=== PATIENT | female | born 1975 | race Caucasian/White ===

== ENCOUNTER → 2022-04-02 11:05 | Outpatient (CLI) | payer OTHER, SELFPAY ==
[2022-04-02 18:43] LABS: Basophils # 0.2 K/mm3 (0-0.2); Basophils % 1.4 % (0.1-2.0); Eosinophils # 0.3 K/mm3 (0.0-0.4); Eosinophils % 2.6 % (0.1-12.0); Hematocrit 50.7 % (37.0-47.0); Hemoglobin 16.3 g/dL (12.2-16.2); Lymphocytes % 26.8 % (10-50); Mean Corpuscular HGB Conc 32.1 g/dL (31.8-35.4); Mean Corpuscular Hemoglobin 31.6 pg (27.0-31.2); Mean Corpuscular Volume 98.5 fl (81-99); Mean Platelet Volume 9.2 fl (7.4-10.4); Monocytes # 0.7 K/mm3 (0.1-1.0); Monocytes % 5.9 % (1.7-9.3); Neutrophils % 63.3 % (37.0-80.0); Platelet Count 388 K/mm3 (142-424); Red Blood Count 5.14 M/mm3 (4.20-5.40); Red Cell Distribution Width 13.9 % (11.5-17.5)
[2022-04-02 18:58] LABS: Alanine Aminotransferase 18 U/L (12-78); Albumin Level 4.3 g/dl (3.5-5.0); Albumin/Globulin Ratio 1.8 (1.1-1.8); Alkaline Phosphatase 72 U/L (38-126); Anion Gap 13.3 mEq/L (5-15); Aspartate Amino Transferase 30 U/L (14-36); Bilirubin,Total 0.6 mg/dl (0.2-1.3); Blood Urea Nitrogen 18 mg/dl (7-17); Calcium 9.1 mg/dl (8.4-10.2); Carbon Dioxide 27 mmol/L (22.0-30.0); Chloride 102 mmol/L (98-107); Estimated Glomerular Filt Rate 89 ml/min (>60); GFR (African American) 108 ML/MIN (>60); Globulin 2.4 g/dL (1.3-3.2); Glucose 91 mg/dl (74-100); Potassium 4.3 mmoL/L (3.5-5.1); Sodium 138 mmol/L (136-145); Total Protein,Serum 6.7 g/dl (6.3-8.2)
[2022-04-02 19:26] LABS: Thyroid Stimulating Hormone 0.82 uIU/mL (0.465-4.68)
[2022-04-02 19:45] LABS: Vitamin B12 610 pg/mL (239-931)
== END ==
PROVIDERS: PCP Family Medicine; Visit Provider Family Medicine
DX: R10.13 Epigastric pain (principal); B37.0 Candidal stomatitis
CPT/HCPCS: 80053; 82607; 84443; 85025

== ENCOUNTER 2022-05-14 11:10 | Emergency (ER) | payer OTHER, SELFPAY ==
[2022-05-14 14:15] VITALS: BP 132/84; PULSE 75; RESP 20; TEMP 37; O2SAT 95; BMI 28.9
--- NOTE | 2022-05-14 14:15 | EXP.UTC ---
Discharge Plan Disposition Patient Disposition: Home, Self-Care Condition: Good Prescriptions Prescriptions: New azithromycin [Zithromax] 250 mg tablet 250 mg PO UD DOSE PK Qty: 6 0RF Rx Instructions: Take two (2) tablets today, then one (1) tablet days #2 thru #5 methylprednisolone 4 mg Tablets,Dose Pack 4 mg PO DIRECTED Qty: 21 0RF fluconazole [Diflucan] 100 mg tablet 100 mg PO DAILY 3 Days Qty: 3 0RF No Action fluconazole [Diflucan] 200 mg tablet 200 mg PO DAILY 14 Days Qty: 14 0RF nystatin 100,000 unit/mL suspension 5 ml PO QID 14 Days Qty: 280 0RF Rx Instructions: Swish, Gargle, and Swallow fenofibrate 160 mg tablet 160 mg PO DAILY fluticasone propionate 50 mcg/actuation spray,suspension 2 spray intranasal cyclobenzaprine 10 mg tablet 10 mg PO DAILY quetiapine 50 mg tablet 50 mg PO DAILY citalopram 20 mg tablet 20 mg PO DAILY Referrals Follow up/Referrals: Bakari Azevedo JR, MD [Physician] - See instructions Provider,MD David [Primary Care Provider] - See instructions Activity Restrictions/Add. Instructions Additional Instructions/Restrictions: Drink plenty of fluids. Take tylenol or ibuprofen for pain or fever. Take the medications as directed. Follow up with your regular doctor. GO TO THE ER FOR ANY WORSENING SYMPTOMS Rest the extremity, apply ice for 15 minutes as tolerated three or four times per day, Wear the ning wrap for compression, Elevate the extremity as tolerated while you are resting. Follow up with Dr. Azevedo (orthopedics for your shoulder pain. I put in a referral but you need to call his office and schedule an appointment. Clinical Impressions Clinical Impression: Bronchitis, Thrush, Tendinopathy of right shoulder Instructions Patient Instructions: Shoulder Tendinopathy, DI for Acute Bronchitis, DI for Shoulder Tendinopathy, Fluconazole, Thrush-Adult Discharge ED Provider: Seth Byrnes [facility] General Stated complaint: wc 05/09 1600 right shoulder pain, sore throat Time Seen by Provider: 05/14/22 14:15 History of Present Illness Provider Complaint: She c/o chest congestion for the past 3 days. She has had a whitish coating in her mouth for the past several weeks that she attributes to thrush. She also c/o right shoulder pain for the past 1 week. She originally hurt her shoulder when she was trying to unhook the trailer connected to her truck and she had to strain to get it loose. This occured right before she began having her current symptoms. Related Data Home Medications Medication Instructions Recorded Confirmed citalopram 20 mg tablet 20 mg PO DAILY 04/02/22 04/29/22 cyclobenzaprine 10 mg tablet 10 mg PO DAILY 04/02/22 04/29/22 fenofibrate 160 mg tablet 160 mg PO DAILY 04/02/22 04/29/22 fluticasone propionate 50 2 spray intranasal 04/02/22 04/29/22 mcg/actuation nasal spray,suspension quetiapine 50 mg tablet 50 mg PO DAILY 04/02/22 04/29/22 Previous Rx's Medication Instructions Recorded fluconazole 200 mg tablet 200 mg PO DAILY oral candidiasis 04/29/22 (Diflucan) 14 days #14 tabs nystatin 100,000 unit/mL oral 5 ml PO QID 14 days #280 mL 04/29/22 suspension azithromycin 250 mg tablet 250 mg PO UD DOSE PK #6 tabs 05/14/22 (Zithromax) fluconazole 100 mg tablet 100 mg PO DAILY 3 days #3 tabs 05/14/22 (Diflucan) methylprednisolone 4 mg tablets in 4 mg PO DIRECTED #21 tabs 05/14/22 a dose pack Allergies Allergy/AdvReac Type Severity Reaction Status Date / Time Penicillins Allergy Severe Swelling Verified 04/29/22 11:28 of Lip/Tongue/Throat venlafaxine [From Effexor] AdvReac Mild Agitated Verified 04/29/22 11:28 [facility] Medical History Anxiety Anxiety and depression Bipolar depression Dyspepsia HLD (hyperlipidemia) HTN (hypertension) Oral candidiasis Oropharyngeal candid
[2022-05-14 14:27] VITALS: BP 132/84; PULSE 75; RESP 20; TEMP 37; O2SAT 95
[2022-05-14 14:55] LABS: UTC Strep Screen (Rapid) Negative (Negative)
== END 2022-05-14 15:30 | disposition home or self-care (01) ==
PROVIDERS: Emergency Provider Nurse Practitioner Family
DX: J40 Bronchitis, not specified as acute or chronic (principal); B37.0 Candidal stomatitis; M67.911 Unspecified disorder of synovium and tendon, right shoulder
CPT/HCPCS: 87880; 99212; G0463

== ENCOUNTER → 2022-09-02 13:40 | Outpatient (CLI) | payer OTHER, SELFPAY ==
--- NOTE | 2022-09-02 13:43 | MR_ITS ---
FINAL REPORT CLINICAL HISTORY: shoulder pain. popping and clicking in shoulder. weakness in arm. COMPARISON: None FINDINGS: Multiplanar MR imaging of the right shoulder was performed without contrast. There is supraspinatus and infraspinatus tendinosis. There is partial-thickness articular surface tear of the supraspinatus tendon less than 50% thickness.. There is mild AC joint arthrosis. There is a small amount of fluid in the bursa. The glenoid labrum is intact. The long head of the biceps tendon is intact. A small glenohumeral joint effusion is seen. There is abnormal signal in the anterior and posterior humeral head. Posterior focus is consistent with subchondral cyst. Anterior focus may represent osteochondral lesion versus small nondisplaced fracture. The musculature is intact. There is no evidence of soft tissue mass. IMPRESSION: Partial-thickness articular surface tear of the supraspinatus tendon. Osteochondral lesion versus small nondisplaced fracture in the humeral head. Other degenerative changes as above. Reviewed, Interpreted and Dictated by Jalen Gutierres III, MD Transcribed by Romi Loo Authenticated and [facility]
--- NOTE | 2022-09-02 14:24 | XR_ITS ---
FINAL REPORT CLINICAL HISTORY: right great toe pain, old injury tore toe nail off a few years ago. stubbed toe FINDINGS: RIGHT TOES 3 views of the right great toe were obtained. There is no acute fracture or dislocation. There are mild degenerative changes of the 1st MTP joint. There is no acute soft tissue abnormality. IMPRESSION: Degenerative change with no acute bony abnormality. Reviewed, Interpreted and Dictated by Jalen Gutierres III, MD Transcribed by Tigist Flanagan Authenticated and [facility][1]
== END ==
PROVIDERS: PCP Nurse Practitioner; Visit Provider Orthopaedic Surgery
DX: S46.011A Strain of muscle(s) and tendon(s) of the rotator cuff of right shoulder, initial encounter (principal); M79.674 Pain in right toe(s)
CPT/HCPCS: 73221; 73660

== ENCOUNTER → 2022-10-25 08:27 | Outpatient (CLI) | payer OTHER, SELFPAY ==
[2022-10-25 18:47] LABS: Alanine Aminotransferase 18 U/L (12-78); Albumin Level 4.6 g/dl (3.5-5.0); Albumin/Globulin Ratio 2.2 (1.1-1.8); Alkaline Phosphatase 52 U/L (38-126); Anion Gap 16.2 mEq/L (5-15); Aspartate Amino Transferase 25 U/L (14-36); Bilirubin,Total 0.6 mg/dl (0.2-1.3); Blood Urea Nitrogen 21 mg/dl (7-17); Calcium 9.4 mg/dl (8.4-10.2); Carbon Dioxide 31 mmol/L (22.0-30.0); Chloride 96 mmol/L (98-107); Cholesterol 196 mg/dl (140-200); Estimated Glomerular Filt Rate 89 ml/min (>60); GFR (African American) 108 ML/MIN (>60); Globulin 2.1 g/dL (1.3-3.2); Glucose 96 mg/dl (74-100); HDL Cholesterol 65 mg/dl (40-60); Potassium 4.2 mmoL/L (3.5-5.1); Sodium 139 mmol/L (136-145); Total Protein,Serum 6.7 g/dl (6.3-8.2); Triglycerides 119 mg/dl (30-150); VLDL Cholesterol 24 mg/dL (0-40)
[2022-10-25 18:58] LABS: Direct LDL Cholesterol 105.46 mg/dL (100-129)
[2022-10-25 19:04] LABS: 25-OH Vitamin D, Total 94.2 ng/mL (30-100)
== END ==
PROVIDERS: PCP Nurse Practitioner; Visit Provider Nurse Practitioner
DX: E55.9 Vitamin D deficiency, unspecified (principal); E78.1 Pure hyperglyceridemia
CPT/HCPCS: 80053; 80061; 82306

== ENCOUNTER → 2022-11-01 16:48 | Outpatient (CLI) | payer OTHER, SELFPAY ==
--- NOTE | 2022-11-01 16:52 | MR_ITS ---
PROCEDURE INFORMATION: Exam: MR Cervical Spine Without Contrast Exam date and time: 11/01/2022 4:48 PM Age: 47 years old Clinical indication: Pain; Cervicalgia; Additional info: Cervical radiculopathy TECHNIQUE: Imaging protocol: Magnetic resonance imaging of the cervical spine without contrast. COMPARISON: DX XR CERVICAL SPINE AP AND LATERAL 10/18/2022 7:55 AM FINDINGS: Bones/joints: C5-C6 anterior interbody fusion changes are stable. The cervical spine is straightened which is unchanged. The vertebral body heights are maintained. There is diffuse disc space height loss with anterior osteophyte formation. The marrow signal is normal. No acute osseous injury. Spinal cord: Normal signal. No cord compression. C2-C3: C2-C3 left-sided subarticular zone focal disc protrusion measures 3 mm AP without significant stenosis of the spinal canal. There is mild uncovertebral and facet joint osteophyte mildly narrowing the left neural foramen. C3-C4: C3-C4 uncovertebral and facet osteophytes severely narrow the left neural foramen and mildly narrow the right neural foramen. The spinal canal is patent. C4-C5: C4-C5 minimal diffuse disc bulging causes mild stenosis of the spinal canal. Uncovertebral facet joint osteophyte severely narrow both neural foramen. C5-C6: C5-C6 status post discectomy and fusion. No spinal canal stenosis after surgery. Uncovertebral and facet joint osteophyte severely narrow both neural foramen. C6-C7: C6-C7 mild diffuse disc bulge and dorsal endplate osteophyte is seen with mild stenosis of the spinal canal. There is severe narrowing of both neural foramen due to osteophyte. C7-T1: C7-T1 minimal dorsal endplate osteophyte is seen without significant stenosis of the spinal canal. The neural foramina are severely narrowed on both sides due to osteophyte. Soft tissues: Unremarkable. Vasculature: Expected flow voids in the vertebral arteries. IMPRESSION: Status post C5-C6 anterior interbody fusion with stable alignment. There is adjacent segment degenerative disc disease present with mild spinal canal stenosis at C4-C5 above the fusion at C6-C7 below the fusion as described. Multilevel severe neural foraminal narrowing is also present.
== END ==
PROVIDERS: PCP Physician Assistant; Visit Provider Physician Assistant
DX: M54.12 Radiculopathy, cervical region (principal); G95.89 Other specified diseases of spinal cord
CPT/HCPCS: 72141; 76376

== ENCOUNTER → 2022-11-05 17:00 | Outpatient (CLI) | payer OTHER, SELFPAY ==
--- NOTE | 2022-11-05 17:02 | MM_ITS ---
PROCEDURE INFORMATION: Exam: MG Bilateral Screening 3D Mammography Exam date and time: 11/05/2022 4:56 PM Age: 47 years old Clinical indication: Screening examination TECHNIQUE: Imaging protocol: Bilateral Screening tomosynthesis and 2D mammography including computer-aided detection (CAD) when performed. COMPARISON: No relevant prior studies available. FINDINGS: MAMMOGRAPHY: Breast composition: The breasts are almost entirely fatty. Mass: None. Architectural distortion: None. Calcifications: No suspicious calcifications. Asymmetric density: None. Skin thickening: None. Axillary adenopathy: None. Implants: Prepectoral saline breast implants are present. IMPRESSION: No mammographic evidence of malignancy. Annual screening is recommended unless otherwise clinically indicated. ASSESSMENT: BI-RADS Category 1: Negative
== END ==
PROVIDERS: PCP Nurse Practitioner; Visit Provider Nurse Practitioner
DX: Z12.31 Encounter for screening mammogram for malignant neoplasm of breast (principal)
CPT/HCPCS: 77063; 77067

== ENCOUNTER → 2022-11-08 14:51 | Outpatient (CLI) | payer OTHER, SELFPAY ==
--- NOTE | 2022-11-08 14:53 | XR_ITS ---
FINAL REPORT CLINICAL HISTORY: left hip pain, no injury. FINDINGS: LEFT HIP 2 views of the left hip and AP view of the pelvis are obtained. There is no acute fracture or dislocation. Mild degenerative changes are seen. Visualized joint spaces are normally aligned. There is no acute soft tissue abnormality. IMPRESSION: No acute bony abnormality. Reviewed, Interpreted and Dictated by Jalen Gutierres III, MD Transcribed by Janae Mariee Authenticated and . [facility]
== END ==
PROVIDERS: PCP Nurse Practitioner; Visit Provider Nurse Practitioner
DX: M25.552 Pain in left hip (principal)
CPT/HCPCS: 73502

== ENCOUNTER → 2023-02-10 10:09 | Outpatient (CLI) | payer OTHER, SELFPAY ==
--- NOTE | 2023-02-10 10:12 | XR_ITS ---
FINAL REPORT CLINICAL HISTORY: injury, right shoulder pain COMPARISON: None FINDINGS: RIGHT SHOULDER Three views demonstrate no acute fracture or dislocation. The visualized joint spaces are normally aligned. The soft tissues are unremarkable. Note is made of metallic instrumentation in the lower cervical region compatible with a cervical fusion. IMPRESSION: No acute process. Reviewed, Interpreted and Dictated by John Mcqueen MD Transcribed by Lisandra Huang Authenticated and . [facility]
== END ==
PROVIDERS: PCP Nurse Practitioner; Visit Provider Orthopaedic Surgery
DX: M67.911 Unspecified disorder of synovium and tendon, right shoulder (principal)
CPT/HCPCS: 73030

== ENCOUNTER → 2023-03-10 13:44 | Outpatient (POV) | payer OTHER, SELFPAY | PROVIDERS: Visit Provider Specialist/Technologist | DX: Z00.00 Encounter for general adult medical examination without abnormal findings (principal) ==

== ENCOUNTER 2023-09-29 18:00 | Outpatient (CLI) | payer OTHER, SELFPAY ==
[2023-09-29 18:48] LABS: Basophils # 0.1 K/mm3 (0-0.2); Basophils % 1.4 % (0.1-2.0); Eosinophils # 0.2 K/mm3 (0.0-0.4); Hematocrit 49.9 % (37.0-47.0); Hemoglobin 16.1 g/dL (12.2-16.2); Lymphocytes # 2.3 K/mm3 (0.7-4.5); Lymphocytes % 29.5 % (10-50); Mean Corpuscular HGB Conc 32.2 g/dL (31.8-35.4); Mean Corpuscular Hemoglobin 31.9 pg (27.0-31.2); Mean Platelet Volume 9.6 fl (7.4-10.4); Monocytes # 0.4 K/mm3 (0.1-1.0); Monocytes % 5.3 % (1.7-9.3); Neutrophils # 4.7 K/mm3 (1.8-7.8); Neutrophils % 60.7 % (37.0-80.0); Platelet Count 290 K/mm3 (142-424); Red Blood Count 5.04 M/mm3 (4.20-5.40); Red Cell Distribution Width 13.4 % (11.5-17.5); White Blood Count 7.7 K/mm3 (4.8-10.8)
[2023-09-29 18:51] LABS: Alanine Aminotransferase 20 U/L (12-78); Albumin Level 4.5 g/dl (3.5-5.0); Albumin/Globulin Ratio 1.8 (1.1-1.8); Alkaline Phosphatase 60 U/L (38-126); Anion Gap 9.1 mEq/L (5-15); Aspartate Amino Transferase 27 U/L (14-36); Bilirubin,Total 0.8 mg/dl (0.2-1.3); Blood Urea Nitrogen 19 mg/dl (7-17); Calcium 9.7 mg/dl (8.4-10.2); Carbon Dioxide 26 mmol/L (22.0-30.0); Chloride 108 mmol/L (98-107); Estimated Glomerular Filt Rate 106 ml/min (>60); GFR (African American) 128 ML/MIN (>60); Globulin 2.5 g/dL (1.3-3.2); Glucose 109 mg/dl (74-100); HDL Cholesterol 41 mg/dl (40-60); Potassium 4.1 mmoL/L (3.5-5.1); Sodium 139 mmol/L (136-145); Triglycerides 235 mg/dl (30-150); VLDL Cholesterol 47 mg/dL (0-40)
[2023-09-29 18:59] LABS: Chol/HDL Ratio 8.2 (1-3.5); Cholesterol 338 mg/dl (140-200)
[2023-09-29 19:02] LABS: Direct LDL Cholesterol 185.79 mg/dL (100-129)
[2023-09-29 19:09] LABS: 25-OH Vitamin D, Total 47.1 ng/mL (30-100)
[2023-09-29 19:25] LABS: Thyroid Stimulating Hormone 0.78 uIU/mL (0.465-4.68)
[2023-09-29 19:44] LABS: Vitamin B12 545 pg/mL (239-931)
[2023-09-29 19:47] LABS: Creatinine,Urine Random 146 mg/dL (Not Estab.); Microalbumin < 6.000 mg/L (0-16.7)
[2023-09-29 20:11] LABS: Hemoglobin A1C 5.6 % (4.0-6.0)
== END 2023-09-29 23:59 | disposition home or self-care (01) ==
LOC: LAB.DROPOF 09-30 10:22
PROVIDERS: PCP Nurse Practitioner; Visit Provider Nurse Practitioner
DX: E78.1 Pure hyperglyceridemia (principal); E55.9 Vitamin D deficiency, unspecified; F31.9 Bipolar disorder, unspecified; Z13.1 Encounter for screening for diabetes mellitus; R03.0 Elevated blood-pressure reading, without diagnosis of hypertension
CPT/HCPCS: 80053; 80061; 82043; 82306; 82570; 82607; 83036; 84443; 85025

== ENCOUNTER 2023-12-26 10:27 | Outpatient (CLI) | payer OTHER, SELFPAY ==
[2023-12-26 18:51] LABS: Cholesterol 161 mg/dl (140-200); Triglycerides 149 mg/dl (30-150); VLDL Cholesterol 30 mg/dL (0-40)
[2023-12-26 18:52] LABS: Chol/HDL Ratio 3.4 (1-3.5); HDL Cholesterol 48 mg/dl (40-60)
[2023-12-26 19:02] LABS: Direct LDL Cholesterol 72.94 mg/dL (100-129)
== END 2023-12-26 23:59 | disposition home or self-care (01) ==
LOC: LAB.DROPOF 12-27 10:28
PROVIDERS: PCP Nurse Practitioner; Visit Provider Nurse Practitioner
DX: E78.5 Hyperlipidemia, unspecified (principal)
CPT/HCPCS: 80061

== ENCOUNTER 2024-05-28 09:40 | Outpatient (CLI) | payer OTHER, SELFPAY ==
--- NOTE | 2024-05-28 09:52 | XR_ITS ---
FINAL REPORT CLINICAL HISTORY: left knee pain COMPARISON: None FINDINGS: Three views of the left knee reveal no evidence of fracture or dislocation. The bony alignment is normal. There is mild degenerative change. A small joint effusion is noted. No localized soft tissue abnormality is seen. IMPRESSION: Mild degenerative change and small joint effusion. No acute bony abnormality. Reviewed, Interpreted and Dictated by Jalen Gutierres III, MD Transcribed by Romi Loo Authenticated and [facility]
== END 2024-05-28 23:59 | disposition home or self-care (01) ==
LOC: RAD 09:42
PROVIDERS: PCP Nurse Practitioner Family; Visit Provider Orthopaedic Surgery
DX: M25.562 Pain in left knee (principal)
CPT/HCPCS: 73562

== ENCOUNTER 2024-06-12 10:36 | Outpatient (CLI) | payer OTHER, SELFPAY ==
[2024-06-12 10:40] VITALS: PULSE 62; PULSE 68
[2024-06-12] MEDS: ALBUTEROL 0.083% 2.5 MG/3 ML NEB IH (10:40)
--- NOTE | 2024-06-12 10:40 | CT_ITS ---
FINAL REPORT TECHNIQUE: Axial images were obtained from the lung apex to the mid abdomen by computed tomography. This study was performed with techniques to keep radiation doses as low as reasonably achievable (ALARA). Individualized dose reduction techniques using automated exposure control or adjustment of mA and/or kV according to the patient's size were employed. CLINICAL HISTORY: lung cancer screening CURRENT SMOKER 2PPD X33 YEARS FINDINGS: CHEST CT LOW DOSE CTDI vol (mGy): 2.90 DLP (mGy-cm): 90.12 There is no axillary adenopathy. There is no hilar or mediastinal adenopathy. The heart is normal in size. There is no pericardial or pleural effusion. There is a 4 mm nodule in the left lower lobe well-seen on image 53 of series 3. There is a 3 mm nodule in the right lower lobe well-seen on image 53. There is a 2 mm left lower lobe nodule well-seen on image 44. Given the numerous calcifications, these are probably noncalcified granulomas. Limited images of the upper abdomen are unremarkable. IMPRESSION: Small benign-appearing lower lobe nodules, likely granulomas. Lung RADS category 2. Recommend 12 month follow-up low-dose chest CT. Reviewed, Interpreted and Dictated by Jean-Claude Flowers MD Transcribed by Elena Brooke Authenticated and [facility]
== END 2024-06-12 23:59 | disposition home or self-care (01) ==
LOC: RAD 10:37
PROVIDERS: PCP Nurse Practitioner Family; Visit Provider Nurse Practitioner Family
DX: F17.210 Nicotine dependence, cigarettes, uncomplicated (principal); R06.02 Shortness of breath
CPT/HCPCS: 71271; 94060; 94618; 94640; J7613

== ENCOUNTER 2024-10-16 12:15 | Outpatient (CLI) | payer OTHER, SELFPAY ==
[2024-10-16 19:19] LABS: Basophils # 0.1 K/mm3 (0-0.2); Basophils % 0.5 % (0.1-2.0); Eosinophils # 0.3 Kmm3 (0.0-0.4); Eosinophils % 2.7 % (0.1-12.0); Hematocrit 48.5 % (37.0-47.0); Hemoglobin 15.8 g/dL (12.2-16.2); Lymphocytes # 2.5 K/mm3 (0.7-4.5); Lymphocytes % 26.2 % (10-50); Mean Corpuscular HGB Conc 32.6 g/dL (31.8-35.4); Mean Corpuscular Hemoglobin 30.2 pg (27.0-31.2); Mean Corpuscular Volume 92.7 fl (81-99); Mean Platelet Volume 10.9 fl (7.4-10.4); Monocytes # 0.6 K/mm3 (0.1-1.0); Monocytes % 6.6 % (1.7-9.3); Neutrophils # 6.1 K/mm3 (1.8-7.8); Neutrophils % 63.5 % (37.0-80.0); Nucleated Red Blood Cells # 0 10^3/uL; Nucleated Red Blood Cells % 0 %; Platelet Count 370 K/mm3 (142-424); Red Blood Count 5.23 M/mm3 (4.20-5.40); Red Cell Distribution Width 14.1 % (11.5-17.5); Red Cell Distribution Width-SD 48.9 fL; White Blood Count 9.7 K/mm3 (4.8-10.8)
[2024-10-16 19:52] LABS: Alanine Aminotransferase 28 U/L (12-78); Albumin Level 4.9 g/dl (3.5-5.0); Albumin/Globulin Ratio 2.1 (1.1-1.8); Alkaline Phosphatase 62 U/L (38-126); Anion Gap 11.2 mEq/L (5-15); Aspartate Amino Transferase 30 U/L (14-36); Bilirubin,Total 0.5 mg/dl (0.2-1.3); Blood Urea Nitrogen 12 mg/dl (7-17); Calcium 9.7 mg/dl (8.4-10.2); Carbon Dioxide 26 mmol/L (22.0-30.0); Chloride 108 mmol/L (98-107); Chol/HDL Ratio 3.1 (1-3.5); Cholesterol 208 mg/dl (140-200); Estimated Glomerular Filt Rate 105 ml/min (>60); GFR (African American) 128 ML/MIN (>60); Globulin 2.3 g/dL (1.3-3.2); Glucose 73 mg/dl (74-100); HDL Cholesterol 68 mg/dl (40-60); Potassium 4.2 mmoL/L (3.5-5.1); Sodium 141 mmol/L (136-145); Total Protein,Serum 7.2 g/dl (6.3-8.2); Triglycerides 161 mg/dl (30-150); VLDL Cholesterol 32 mg/dL (0-40)
[2024-10-16 19:57] LABS: 25-OH Vitamin D, Total 85.1 ng/mL (30-100)
[2024-10-16 20:03] LABS: Direct LDL Cholesterol 95.71 mg/dL (100-129)
[2024-10-16 20:18] LABS: Thyroid Stimulating Hormone 1.31 uIU/mL (0.465-4.68)
== END 2024-10-16 23:59 | disposition home or self-care (01) ==
LOC: LAB.DROPOF 10-18 11:29
PROVIDERS: PCP Nurse Practitioner Family; Visit Provider Nurse Practitioner Family
DX: E78.1 Pure hyperglyceridemia (principal); R03.0 Elevated blood-pressure reading, without diagnosis of hypertension; M17.12 Unilateral primary osteoarthritis, left knee; E55.9 Vitamin D deficiency, unspecified
CPT/HCPCS: 80053; 80061; 82306; 84443; 85025

== ENCOUNTER 2025-03-28 10:52 | Outpatient (CLI) | payer OTHER, SELFPAY ==
[2025-03-28 18:59] LABS: Alanine Aminotransferase 19 U/L (12-78); Albumin Level 4.4 g/dl (3.5-5.0); Albumin/Globulin Ratio 1.9 (1.1-1.8); Alkaline Phosphatase 58 U/L (38-126); Anion Gap 14.5 mEq/L (5-15); Aspartate Amino Transferase 22 U/L (14-36); Bilirubin,Total 0.7 mg/dl (0.2-1.3); Blood Urea Nitrogen 16 mg/dl (7-17); Calcium 9.3 mg/dl (8.4-10.2); Carbon Dioxide 24 mmol/L (22.0-30.0); Chloride 106 mmol/L (98-107); Cholesterol 166 mg/dl (140-200); Creatinine,Serum 0.70 mg/dl (0.52-1.04); Estimated Glomerular Filt Rate 88 ml/min (>60); GFR (African American) 107 ML/MIN (>60); Globulin 2.3 g/dL (1.3-3.2); Glucose 89 mg/dl (74-100); HDL Cholesterol 52 mg/dl (40-60); Potassium 4.5 mmoL/L (3.5-5.1); Sodium 140 mmol/L (136-145); Total Protein,Serum 6.7 g/dl (6.3-8.2); Triglycerides 129 mg/dl (30-150)
--- OUTSIDE RECORDS SUMMARY | 2025-03-29 02:47 | XMS_ITS | Clinical Summary ---
Author Organization [facility] Address [address] [place] [id number] Care Team Providers Care Maitre D' Name Role Phone Praveena Weiss NAOMY Primary Care Provider [phone] Source Comments This information has been disclosed to you from confidential records protectedfrom disclosure by state law. You shall make no further disclosure of thisinformation without the specific, written, and informed release of theindividual to whom it pertains, or as otherwise permitted by law. A generalauthorization for the release of medical or other information is not sufficientfor the purposes of therelease of HIV test results or diagnoses. [id number] Allergies Active Allergy Reactions Criticality Noted Date Comments Penicillin G Other (See Comments) 12/29/2009 Venlafaxine Other (See Comments),Swelling 04/26 Medications citalopram (CELEXA) 20 MG tablet Take 1 tablet (20 mg total) by mouth daily. Active citalopram (CELEXA) 10 MG tablet Take 1 tablet (10 mg total) by mouth daily. Active FENOFIBRATE ORAL Take 160 mg by mouth at bedtime. Active cholecalciferol, vitamin D3, 1000 units tabletIndications :Cervical radiculopathy Take 1 tablet (1,000 Units total) by mouth daily. 1 Active mupirocin (BACTROBAN) 2 % ointmentIndicatio ns:Preop examination,Cervi theo radiculopathy Apply topically 2 times a day. 22 g 3 Active diphenhydrAMINE (BENADRYL) 25 mg capsule Take 1 capsule (25 mg total) by mouth every 6 hours as needed for Itching. 30 capsule 3 Active gabapentin (NEURONTIN) 300 MG capsuleIndication s:S/P cervical spinal fusion Take 1 capsule (300 mg total) by mouth every 8 hours. 90 capsule 3 Active lidocaine (LIDODERM) 5 % Place 1 patch onto the skin daily. Apply patch for 12 hours and then remove patch and leave off for 12 hours. 30 patch 3 Active naloxone (NARCAN) 4 mg/actuation Manley Apply 1 spray in one nostril if needed. Call 911. May repeat dose in other nostril if no response in 3 minutes. 2 each 1 3 Active polyethylene glycol (GLYCOLAX) 17 gram/dose powder Mix 1 capful of powder (17 grams total) in 8 ounces of fluid and drink by mouth 2 times a day as needed. 238 g 3 Active senna-docusate (SENNA-S) 8.6-50 mg per tablet Take 1 tablet by mouth 2 times a day. 30 tablet 3 Active simethicone (MYLICON) 80 MG chewable tablet Chew 1 tablet (80 mg total) by mouth every 6 hours as needed for Flatulence. 30 tablet 3 Active lidocaine (LIDODERM) 5 %Indications:Cerv ical stenosis of spine Place 1 patch onto the skin daily. Apply patch for 12 hours and then remove patch and leave off for 12 hours. 30 patch 4 Active cyclobenzaprine (FLEXERIL) 10 MG tabletIndications :Cervical stenosis of spine Take 1 tablet (10 mg total) by mouth 3 times a day as needed for Muscle spasms. 90 tablet 4 Active UNABLE TO FIND Med Name: cholesterol medication pt doesn't remember name Active varenicline (CHANTIX STARTING MONTH BOX) 0.5 mg (11)- 1 mg (42) tablet Take one 0.5mg tablet by mouth once daily for 3 days, then one 0.5mg tablet twice daily for 4 days, then one 1mg tablet twice daily. 53 each 4 Active rosuvastatin (CRESTOR) 10 MG tablet Take 1 tablet (10 mg total) by mouth at bedtime. Active omeprazole (PRILOSEC) 10 MG capsule Take 1 capsule (10 mg total) by mouth at bedtime. Active multivitamin (THERAGRAN) tablet Take 1 tablet by mouth daily. Active varenicline (CHANTIX STARTING MONTH BOX) 0.5 mg (11)- 1 mg (42) tablet Take one 0.5mg tablet by mouth once daily for 3 days, then one 0.5mg tablet twice daily for 4 days, then one 1mg tablet twice daily. 53 each 4 Active varenicline (CHANTIX CONTINUING MONTH BOX) 1 mg tabletIndications :Tobacco abuse Take 1 tablet (1 mg total) by mouth 2 times a day. 180 tablet 4 Active varenicline (CHANTIX CONTINUING MONTH BOX) 1 mg tablet Take 1 tablet (1 mg total) by mouth 2 times a day. 60 tablet 2 4 Active Active Problems Problem Noted Date Diagnosed Date S/P cervical spinal fusion 01/10/2023 Bipolar 1 disorder 01/05/2023 Cervical radiculopathy 01/05/2023 Tobacco abuse disorder 01/05/2023 Social History Tobacco Use Types Packs/Day Years Used Date Smoking Tobacco: Every Day Cigarettes Smokeless Tobacco: Never Tobacco Cessation:Ready to Q uit: Not Asked; Counseling Given: Not Answered Alcohol Use Standard Drinks/Week Comments Not Currently 0 (1 standard drink = 0.6 oz pur e alcohol) PHQ-2 Answer Date Recorded PHQ-2 Total Score 0 03/29/2024 Yearly Questionnaire Answer Date Record ed Do you need any assistance w ith obtaining housing, meals, medication, transportation or medical equipment? No 03/29 Assistance needed for: Not on file Yearly Questionnaire Answer Date Record ed Do you need any assistance w ith obtaining housing, meals, medication, transportation or medical equipment? No 03/29 Assistance needed for: Not on file Yearly Questionnaire Answer Date Record ed Do you need any assistance w ith obtaining housing, meals, medication, transportation or medical equipment? No 03/29 Assistance needed for: Not on file Comments No Sex and Gender Information Value Date Recorded Sex Assigned at Not on file Legal Sex Female 8:54 AM EDT Gender Identity Not on file Sexual Orientation Not on file Last Filed Vital Signs Vital Sign Reading Time Taken Comments Blood Pressure 142/83 06/14/2024 11:24 AM EST Pulse 68 06/14/2024 11:24 AM EST Temperature 36.7 C (98 F) 05/25/2024 11:09 AM EST Respiratory Rate 14 05/25/2024 11:09 AM EST Oxygen Saturation 98% 06/14/2024 11:24 AM EST Inhaled Oxygen Concentration 98% 06/14/2024 1 1:24 AM EST Weight 83.5 kg (184 lb) 06/14/2024 11:24 AM EST Height 166.4 cm (5' 5.5 ) 06/14/2024 11:24 AM ES T Body Mass Index 30.15 06/14/2024 11:24 AM EST Plan of Treatment Health Maintenance Due Date Last Done Comments ASCVD Assessment 1973 Abnormal Colonoscopy Follow Up 1973 Depression Monitoring (PHQ-9) 1973 Hepatitis C Screening (MyChart) 1973 Tobacco Cessation Readiness 1973 HIV Screening 1991 Immunization: Hepatitis B (2 of 3 - 19+ 3-dose series) 10/22/2005 09/24/2005 Mammogram (MyChart) 2013 Cologuard (FIT-DNA) 2018 Colonoscopy 2018 Colorectal Cancer Screening (MyChart) 2018 Stool Testing (gFOBT) 2018 Immunization: Pneumococcal ( 2 of 2 - PCV) 01/10/2020 01/09/2019 Immunization: Zoster (1 of 2) 2023 Lung Cancer Screening 2023 Diabetes Screening 01/06/2024 01/05/2023 Immunization: COVID-19 ( season) 2025 Immunization: Influenza (MyC ruby) (#1) 2025 04/29/2022, 03/20/2020, 05/31/2011, Additional history exists Immunization: DTaP/Tdap/Td ( 2 - Td or Tdap) 11/10/2027 11/09/2017, 06/20/2005, 03/20/2003, Additional history exists Medical Devices Implanted Type [facility] Rn Device Identifier Shelf Expiration Date Model / Serial / Lot Graft Bone Cancellous 4-9.5 Mm 30 Cc Allograft Freeze Dry Chip - [id number] Implanted:Qty: 1 on 01/07/2023 by Hiram Aguilar MD at [facility] Main Graft [employer] 08/02/2027 [id number] / [id number] / Graft Bn Cllr Bn Mtrx Algrf [facility] [id number] Implanted:Qty: 1 on 01/07/2023 by Hiram Aguilar MD at [facility] Main Graft [employer] 12/14/2023 [id number] / [id number] / Screw Bn 24mm 4.5mm Ply Spne Pdcl Ns 4mm Nikos - [id number] Implanted:Qty: 2 on 01/07/2023 by Hiram Aguilar MD at [facility] Main Screw N/A: Spine Cervical DEPUY SPINE 01/08/2024 [id number] / / Screw Bn 12mm 3.5mm Ply Spne Ns 4mm Nikos - [id number] Implanted:Qty: 8 on 01/07/2023 by Hiram Aguilar MD at [facility] Main Screw N/A: Spine Cervical DEPUY SPINE 01/08/2024 [id number] / / Screw Set Ti T15 Std Spne Lck Cap Ns - [id number] Implanted:Qty: 10 on 01/07/2023 by Hiram Aguilar MD at [facility] Main Screw N/A: Spine Cervical DEPUY SPINE 01/08/2024 [id number] / / Nikos Spnl 80mm 4mm Ti Lrdtc Ns - [id number] Implanted:Qty: 2 on 01/07/2023 by Hiram Aguilar MD at [facility] Main Spine N/A: Spine Cervical DEPU[employer] SPINE 01/08/2024 [id number] / / Connector Nikos 4mm Spne Sphn Shrt Lat Ofst Ns Lf - [id number] Implanted:Qty: 2 on 01/07/2023 by Hiram Aguilar MD at [facility] Main Spine DEPU[employer] SPINE [id number] / / Procedures Procedure Name Priority Date/Time Associated Diagnosis Comments HEMOGLOBIN A1C Routine 01/05/2023 10:14 AM EDT Preop examination Cervical radiculopathy from Last 3 Months or Most Recently Relevant to Health Maintenance Results * (ABNORMAL) Hemoglobin A1c (01/05/2023 10:14 AM EDT) Hemoglobin A1C 5.7(H) 4.0 - 5.6 % 01/05/2023 1:24 PM EDT [facility] Comment: Hemoglobin A1c Interpretation Guidelines: Normal: <5.7% Prediabetes: 5.7-6.4% Diabetes: >6.4% Diagnosis requires two independent tests unless clinical diagnosis is clear. Some clinical conditions, particularly anemias and hemoglobinopathies, may interfere with the diagnostic accuracy of hemoglobin A1c. The recommended goal for diabetic glycemic control (Hemoglobin A1c <7.0%) should be individualized based on duration of diabetes, age/life expectancy, comorbid conditions, known CVD or advanced microvascular complications, hypoglycemia unawareness, and other individual patient considerations. Whole Blood 01/05/2023 10:1 4 AM EDT 01/05/2023 10:50 AM EDT us Dawood Cedillo MD LAB BLOOD ORDERABLES Final Resu lt [facility] [address] [place] [address], [facility] from Last 3 Months or Most Recently Relevant to Health Maintenance Insurance [facility] [place] [id number] [facility] [employer] [place] Member Subscriber Plan / Payer (Ef fective 2022-Present) Name:Miriam Vergara Relation to Subscriber:Self Name:Miriam Vergara Payer ID:[id number] Group ID:Not on file Type:Not on file Address: [address] [address] [address] [place], [place] [address] [address] [place], [place] [address] Advance Directives For more information, please contact: [phone] * Full Code (Latest Code Status on File) Date Activated Date Inactivated Comments 01/07/2023 1:15 PM 01/10/2023 5:28 PM Care Teams Maitre D' Relationship Specialty Start Date End Date Praveena Weiss NP [facility] [place] [address] PCP - General 01/10/23
--- OUTSIDE RECORDS SUMMARY | 2025-03-29 02:47 | XMS_ITS | Encounter Summary ---
Author Organization [facility] Address [facility] [place] [address] Care Team Providers Care Patient Admitting Clerk Name Role Phone Pcp, No Primary Care Provider [phone] Praveena Weiss NP Primary Care Provider [phone] Source Comments This information has been disclosed to you from confidential records protectfrom disclosure by state law. You shall make no further disclosure of thisinformation without the specific, written, and informed release of theindividual to whom it pertains, or as otherwise permitted by law. A generalauthorization for the release of medical or other information is not sufficientfor the purposes of the release of HIV test results or diagnoses. [id number] Health Encounter Details Date Type Department Care Team (Late st Contact Info) Description 11/10/2022 Orders Only [facility] [place] [address] [place] [address] Hiram Aguilar MD [address] [facility] [address] [place] [id number] Social History Tobacco Use Types Packs/Day Years Used Date Smoking Tobacco: Never Assessed PHQ-2 Answer Date Recorded PHQ-2 Total Score 0 11/04/2022 Yearly Questionnaire Answer Date Record ed Do you need any assistance w ith obtaining housing, meals, medication, transportation or medical equipment? No 11/04 Assistance needed for: Not on file Yearly Questionnaire Answer Date Record ed Do you need any assistance w ith obtaining housing, meals, medication, transportation or medical equipment? No 11/04 Assistance needed for: Not on file 3 Yearly Questionnaire Answer Date Record ed Do you need any assistance w ith obtaining housing, meals, medication, transportation or medical equipment? No 11/04 Assistance needed for: Not on file 3 Comments Unknown Sex and Gender Information Value Date Recorded Sex Assigned at Not on file Legal Sex Female 8:54 AM EDT Gender Identity Not on file Sexual Orientation Not on file documented as of this encounter Plan of Treatment Not on file documented as of this encounter Visit Diagnoses Not on filedocumented in this encounter Care Teams Patient Admitting Clerk Relationship Specialty Start Date End Date Pcp, No [address] [place] [address] PCP - General 10/20/22 01/09/23 Praveena Weiss NP [address] [place] [address] PCP - General 01/10/23 documented as of this encounter
== END 2025-03-28 23:59 ==
LOC: LAB.DROPOF 03-29 02:45
PROVIDERS: PCP Student in an Organized Health Care Education/Training Program; Visit Provider Student in an Organized Health Care Education/Training Program
DX: E78.5 Hyperlipidemia, unspecified (principal)
CPT/HCPCS: 80053; 80061

== ENCOUNTER 2025-05-27 09:48 | Outpatient (CLI) | payer OTHER, SELFPAY ==
--- NOTE | 2025-05-27 09:52 | XR_ITS ---
PROCEDURE INFORMATION: Exam: XR Left Knee Exam date and time: 05/27/2025 9:53 AM Age: 50 years old Clinical indication: Pain; Swelling or effusion of joint; Knee; Left; Additional info: Left knee pain TECHNIQUE: Imaging protocol: Radiologic exam of the left knee. Views: 3 views. COMPARISON: CR XR KNEE LT 3V 05/28/2024 9:53 AM FINDINGS: Bones/joints: Mild tricompartmental osteoarthrosis. Soft tissues: Mild anterior soft tissue edema. IMPRESSION: 1. Mild tricompartmental osteoarthrosis. 2. Mild anterior soft tissue edema. Please correlate for evidence of posttraumatic versus inflammatory etiologies.
== END 2025-05-27 23:59 ==
LOC: RAD 09:49
PROVIDERS: PCP Nurse Practitioner Family; Visit Provider Orthopaedic Surgery
DX: M17.12 Unilateral primary osteoarthritis, left knee (principal)
CPT/HCPCS: 73562